=== PATIENT | male | born 1995 | race Caucasian/White ===

== ENCOUNTER 2025-01-31 22:55 | Emergency (ER) | payer MEDICAID, SELFPAY ==
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
--- NOTE | 2025-01-31 23:00 | DI.RAD_ITS ---
Exam(s) XR TIB/FIB RT EXAM: XR TIB/FIB RT CLINICAL HISTORY: trauma/injury two weeks ago/still pain prox fib. TECHNIQUE: 2D digital imaging was performed. COMPARISON: No exams were available for comparison FINDINGS: Two views No evidence of fracture. Bone density normal. No osseous lesions. No radiopaque foreign bodies. S oft tissues appear unremarkable. IMPRESSION: No acute osseous findings DATA REPOSITORY: RADIATION DOSE DELIVERED:
[2025-01-31 23:05] VITALS: BP 142/64; PULSE 110; RESP 18; TEMP 36.3; O2SAT 99
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
== END 2025-01-31 23:55 | disposition home or self-care (01) ==
LOC: ER 02-01 01:14
PROVIDERS: Emergency Provider Emergency Medicine
DX: S80.11XA Contusion of right lower leg, initial encounter (principal); S00.83XA Contusion of other part of head, initial encounter; S01.81XA Laceration without foreign body of other part of head, initial encounter; S01.01XA Laceration without foreign body of scalp, initial encounter; Y04.8XXA Assault by other bodily force, initial encounter
CPT/HCPCS: 12001; 12011; 99283; 73590